=== PATIENT | male | born 1980 | race Caucasian/White ===

== ENCOUNTER → 2017-07-28 | Day surgery (SDC) | payer OTHER | END | disposition home or self-care (01) | LOC: ADM 07-26 09:15 → CIR.AMB 09:15 | DX: S43.132A Dislocation of left acromioclavicular joint, greater than 200% displacement, initial encounter (principal); M19.012 Primary osteoarthritis, left shoulder ==

== ENCOUNTER 2023-06-10 13:55 | Emergency (ER) | payer OTHER ==
[~2023-06-10] VITALS: Ht 190.5 cm; Wt 131.5 kg
[2023-06-10 18:09] LABS: HEMATOCRIT 43.5 % (39.0-48.0); HEMOGLOBIN 14.8 g/dL (13-16.00); MEAN CELL VOLUME 85.4 fL (80.0-100.00); MEAN CORPUSCULAR HEMOGLOBIN 29.1 pg (27.00-32.0); MEAN CORPUSCULAR HGB CONC 34.1 g/dl (32.0-36.0); PLATELET COUNT 293 K/uL (150-450); RED CELL DISTRIBUTION WIDTH 14.9 % (11.5-14.5)
[2023-06-10 18:54] LABS: PH,URINE 5.5 (5.0-8.0); URINE APPEARANCE Clear; URINE BILIRRUBIN Negative (NEGATIVE); URINE BLOOD Negative; URINE COLOR Yellow; URINE GLUCOSE Negative (NEGATIVE); URINE LEUKOCYTE Negative; URINE NITRATE Negative; URINE PROTEIN Negative (NEGATIVE); URINE UROBILINOGEN 0.2 E.U./dl
[2023-06-10 19:07] LABS: URINE BACTERIA 2.5 uL (0.0-1933); URINE WBC 1.6 uL (0.0-23.2)
== END 2023-06-10 21:32 | disposition home or self-care (01) ==
LOC: ER 13:56
PROVIDERS: Nurse Practitioner Family
DX: R10.30 Lower abdominal pain, unspecified (principal)